=== PATIENT | female | born 1975 ===

== ENCOUNTER 2019-03-11 20:19 | Inpatient (IN) | payer OTHER ==
--- NOTE | 2019-03-11 20:31 | Event Note ---
ED Screening Note ED Screening Note: pt presents to the ED with c/o "dehydration" states she has been drinking but still feels dry generalized body aches two episodes of emesis yesterday no appetite +nausea no abd pain no fever no cough no rhinorrhea, congestion states she has a hx of anemia, with blood transfusion 2 years ago states she has DM on metformin This initial assessment/diagnostic orders/clinical plan/treatment(s) is/are subject to change based on patients health status, clinical progression and re- assessment by fellow clinical providers in the ED. Further treatment and workup at subsequent clinical providers discretion. Patient/guardian urged not to elope from the ED as their condition may be serious if not clinically assessed and managed. Initial orders include: labs, UA, EKG
--- NOTE | 2019-03-11 21:10 | Emergency Department Report ---
HPI - General Chief Complaint: Dyspnea/Respdistress Time Seen by Provider: 03/11/19 20:28 - HPI HPI: 43-year-old female presents to the emergency department with a complaint of "I think my diabetes is out of control." She complains of a 4 day history of some generalized weakness and fatigue, shortness of breath, rapid heartbeat, body aches. She has not insulin dependent diabetes for which she takes metformin 500 mg once per day compliantly. She also has a history of anemia and says that she has required a transfusion 2 years ago. The anemia has unknown etiology and she denies any significant bleeding. She has a primary care physician through a local clinic but has not seen them regarding her symptoms. No fever. No recent travel or sick contacts at home. ED Past Medical Hx - Past Medical History Previous Medical History?: Yes Hx Diabetes: Yes Additional medical history: Anemia - Surgical History Past Surgical History?: Yes Additional Surgical History: - Social History Smoking Status: Never Smoker Substance Use Type: None - Medications Home Medications: Home Medications Medication Instructions Recorded Confirmed Last Taken Type metFORMIN [Glucophage] 1 tab PO DAILY 03/11/19 03/11/19 Unknown History ED Review of Systems ROS: Stated complaint: HEADACHE/BODY PAIN Other details as noted in HPI Comment: All other systems reviewed and negative Constitutional: weakness. denies: chills, fever Eyes: denies: eye pain, vision change ENT: denies: ear pain, throat pain Respiratory: shortness of breath. denies: cough Cardiovascular: palpitations. denies: chest pain Gastrointestinal: nausea, vomiting Genitourinary: denies: dysuria, discharge Musculoskeletal: myalgia. denies: joint swelling Skin: denies: rash, lesions Neurological: denies: numbness, paresthesias Physical Exam - Physical Exam Vital Signs: Vital Signs 03/11/19 20:26 Temperature 98.6 F Pulse Rate 126 H Respiratory 18 Rate Blood Pressure 155/92 O2 Sat by Pulse 94 Oximetry Physical Exam: GENERAL: The patient is well-developed well-nourished. HENT: Normocephalic. Atraumatic. Patient has moist mucous membranes. EYES: Extraocular motions are intact. Pupils equal reactive to light bilateral ly. NECK: Supple. Trachea is midline. CHEST/LUNGS: Clear to auscultation. There is no respiratory distress noted. HEART/CARDIOVASCULAR: Regular. There is mild tachycardia. There is no murmur. ABDOMEN: Abdomen is soft, nontender. Patient has normal bowel sounds. There is no abdominal distention. SKIN: Skin is warm and dry. NEURO: The patient is awake, alert, and oriented. The patient is cooperative. The patient has no focal neurologic deficits. Normal speech. Cranial nerves II through XII grossly intact. MUSCULOSKELETAL: There is no tenderness or deformity. There is no evidence of acute injury. ED Course Vital Signs 03/11/19 20:26 Temperature 98.6 F Pulse Rate 126 H Respiratory 18 Rate Blood Pressure 155/92 O2 Sat by Pulse 94 Oximetry ED Medical Decision Making - Lab Data Result diagrams: 03/11/19 20:53 03/11/19 21:47 - EKG Data -: EKG Interpreted by Me EKG shows normal: sinus rhythm, axis, intervals, QRS complexes, ST-T waves Rate: tachycardia (115 bpm) - EKG Data When compared to previous EKG there are: previous EKG unavailable Interpretation: normal EKG (with sinus tachycardia) - Medical Decision Making Patient presents with multiple complaints that appear to be secondary to DKA, despite the fact the patient is [id number]. Blood sugar came back at about 820. The patient has venous acidosis and an elevated anion gap and 80 ketones in the urine. She has been started on an insulin drip, been given IV fluid resuscitation and will be admitted to the ICU. The patient has been accepted for admission by the hospitalist, Dr. Monroe. - Differential Diagnosis DKA, HHNK, Viral Syndrome Critical Care Time: Yes Critical care time in (mins) excluding proc time.: 31 Critical care attestation.: If time is entered above; I have spent that time in minutes in the direct care of this critically ill patient, excluding procedure time. Critical care time was spent on this patient and doing her initial evaluation, multiple re-evaluati ons, ordering and interpretation of labs and imaging, ordering of insulin drip, multiple discussions with the patient. Critical Care Time: 31 minutes ED Disposition Clinical Impression: Transaminitis Diabetic ketoacidosis Qualifiers: Diabetes mellitus type: type 2 Diabetes mellitus complication detail: without coma Qualified Code(s): E11.10 - Type 2 diabetes mellitus with ketoacidosis without coma Disposition: 09 OP ADMIT IP TO THIS HOSP Is pt being admited?: Yes Condition: Serious Time of Disposition: 23:48
[2019-03-11 21:26] LABS: Albumin 4.2 g/dL (3.9-5); Calcium 9.4 mg/dL (8.4-10.2)
[2019-03-11 21:30] LABS: Bilirubin,Urine NEG (Negative); Blood,Urine LG (Negative); Color,Urine Straw (Yellow); Protein,Urine <15 mg/dL mg/dL (Negative); RBC,Urine > 182.0 /HPF (0.0-6.0); Urobilinogen,Urine < 2.0 mg/dL (<2.0)
[2019-03-11 21:36] LABS: Basophils # (Auto) 0.1 K/mm3 (0.0-0.1); Eosinophils # (Auto) 0.1 K/mm3 (0.0-0.4); Eosinophils % (Auto) 1.1 % (0.0-4.3); Lymphocytes # (Auto) 1.9 K/mm3 (1.2-5.4); Lymphocytes % (Auto) 20.8 % (13.4-35.0); Mean Corpuscular HGB Conc 30 % (30-34); Mean Corpuscular Volume 73 fl (79-97); Monocytes # (Auto) 0.4 K/mm3 (0.0-0.8); Monocytes % (Auto) 3.9 % (0.0-7.3); Platelet Count 203 K/mm3 (140-440); Red Blood Count 5.56 M/mm3 (3.65-5.03)
[2019-03-11 21:37] LABS: Hematocrit 40.6 % (30.3-42.9); Red Cell Distribution Width 21.6 % (13.2-15.2)
[2019-03-11] MEDS ORDERED: SODIUM CHLORIDE 0.9% 1000 ML 1,000 ML IV ONE ×2 (21:41→22:06)
[2019-03-11] MEDS ORDERED: INSULIN REGULAR, HUMAN 100 UNITS in SODIUM CHLORIDE 0.9% 99 ML IV SCH (22:00)
[2019-03-11] MEDS ORDERED: ONDANSETRON 4 MG/2 ML INJ IV PRN (22:04)
[2019-03-11] MEDS ORDERED: ACETAMINOPHEN 325 MG TAB PO PRN (22:04)
--- NOTE | 2019-03-11 22:04 | History and Physical Report ---
History of Present Illness Date of examination: 03/11/19 History of present illness: 43-year-old woman with a history of diabetes on metformin comes emergency room with 3 days symptoms of generalized weakness, malaise. Also complained of dry mouth, frequent urination, nausea and decreased appetite, drinking alot. She has not checked her blood sugar in a week because she ran out of strips, states she is compliant with medication Review of systems Constitutional: no weight loss, chills, fever Ears, eyes, nose, mouth and throat: no nasal congestion, no nasal discharge, no sinus pressure, no vision change, no red eye. Neck: No neck pain or rigidity. Cardiovascular: no chest pain, palpitations Respiratory: no cough, shortness of breath Gastrointestinal: no abdominal pain hematochezia Genitourinary : no frequency , no hematuria Musculoskeletal: no joint swelling or muscle ache Integumentary: no rash, no pruritis Neurological: no parathesias, no numbness, no focal weakness Endocrine: no cold or heat intolerance Hematologic/Lymphatic: no easy bruising, no easy bleeding, no gland swelling Allergic/Immunologic: no urticaria, no angioedema. PAST MEDICAL HISTORYdiabetes PAST SURGICAL HISTORY: c/section SOCIAL HISTORY: No drugs, tobacco, alcohol FAMILY HISTORY: Hypertension Medications and Allergies Allergies Allergy/AdvReac Type Severity Reaction Status Date / Time No Known Allergies Allergy Verified 03/11/19 21:44 Home Medications Medication Instructions Recorded Confirmed Last Taken Type metFORMIN [Glucophage] 1 tab PO DAILY 03/11/19 03/11/19 Unknown History Active Meds: Active Medications Insulin Human Regular 100 (units/ Sodium Chloride) 100 mls @ 6 mls/hr IV TITR SHERLEY; Protocol Sodium Chloride (Nacl 0.9% 1000 Ml) 1,000 mls @ 999 mls/hr IV BOLUS ONE Stop: 03/11/19 22:41 Last Admin: 03/11/19 22:02 Dose: 999 mls/hr Documented by: Exam - Physical Exam Narrative exam: Gen. appearance: Patient lying in bed, no apparent distress HEENT: Normocephalic, atraumatic, pupils equally round and reactive to light, extraocular movement intact, and no sclericterus,. No JVD or thyromegaly or nodule,neck supple, no carotid bruit ,mucous membranes dry, no exudate or erythema Heart: S1, S2, regular rate and rhythm Lungs: Clear bilaterally, breathing comfortable Abdomen: Positive bowel sounds, non-tender, nondistended, no organomegaly Extremity:no edema cyanosis, clubbing Skin: no rash, dry, warm Neuro: Oriented 3, cranial nerves II-12 intact, speech is fluent, motor and sensory intact - Constitutional Vitals: Temp Pulse Resp BP Pulse Ox 98.7 F 127 H 20 157/100 97 03/11/19 21:04 03/11/19 21:04 03/11/19 21:04 03/11/19 21:04 03/11/19 21:04 Results - Labs CBC & Chem 7: 03/11/19 20:53 03/11/19 21:47 Labs: Abnormal lab results 03/11/19 03/11/19 03/11/19 Range/Units 20:44 20:53 20:53 RBC 5.56 H (3.65-5.03) M/mm3 MCV 73 L (79-97) fl MCH 22 L (28-32) pg RDW 21.6 H (13.2-15.2) % Seg Neutrophils % 73.2 H (40.0-70.0) % VBG pH (7.320-7.420) Sodium 133 L (137-145) mmol/L Chloride 96.3 L (98-107) mmol/L Carbon Dioxide 15 L (22-30) mmol/L Glucose 826 H* (65-100) mg/dL POC Glucose > 500 H (70-105) AST 81 H (5-40) units/L ALT 129 H (7-56) units/L Ur Specific [place] (1.003-1.030) Urine WBC (Auto) (0.0-6.0) /HPF 03/11/19 03/11/19 Range/Units 20:53 21:14 RBC (3.65-5.03) M/mm3 MCV (79-97) fl MCH (28-32) pg RDW (13.2-15.2) % Seg Neutrophils % (40.0-70.0) % VBG pH 7.272 L (7.320-7.420) Sodium (137-145) mmol/L Chloride (98-107) mmol/L Carbon Dioxide (22-30) mmol/L Glucose (65-100) mg/dL POC Glucose (70-105) AST (5-40) units/L ALT (7-56) units/L Ur Specific [place] 1.031 H (1.003-1.030) Urine WBC (Auto) 8.0 H (0.0-6.0) /HPF Assessment and Plan Assessment DKA Metabolic Acidosis pseudohyponatremia Plan Admit to medicine Start DKA protocol with IV fluid, insulin drip Monitor serial chemistry, check HAIc DVT prophalaxis
[2019-03-11 22:18] LABS: BUN/Creatinine Ratio 11; Blood Urea Nitrogen 11 mg/dL (7-17); Calcium 9.3 mg/dL (8.4-10.2); Hemolysis Index 10
[2019-03-11] MEDS ORDERED: D5W/0.45% NACL/KCL 20 MEQ 20 MEQ/1,000 ML BAG IV SCH (23:00)
[2019-03-11 23:55] LABS: BUN/Creatinine Ratio 11; Blood Urea Nitrogen 10 mg/dL (7-17); Calcium 8.7 mg/dL (8.4-10.2); Hemolysis Index 1
[2019-03-12] MEDS: SODIUM CHLORIDE 0.9% 1000 ML 1,000 ML IV SCH ×2 (00:09→16:28)
[2019-03-12 02:51] LABS: BUN/Creatinine Ratio 13; Blood Urea Nitrogen 9 mg/dL (7-17); Calcium 8.6 mg/dL (8.4-10.2); Hemolysis Index 2
[2019-03-12 05:33] LABS: BUN/Creatinine Ratio 17; Blood Urea Nitrogen 10 mg/dL (7-17); Calcium 8.7 mg/dL (8.4-10.2); Hemolysis Index 48
[2019-03-12 07:04] LABS: BUN/Creatinine Ratio 17; Blood Urea Nitrogen 10 mg/dL (7-17); Calcium 8.8 mg/dL (8.4-10.2); Hemolysis Index 2
[2019-03-12] MEDS: INSULIN REGULAR, HUMAN 100 UNITS/1 ML SUB-Q SCH ×3 (10:46→22:33)
--- NOTE | 2019-03-12 14:26 | Progress Note ---
Assessment and Plan DKA, now resolved Metabolic Acidosis pseudohyponatremia obesity - placed on DKA protocol with IV fluid, insulin drip - Monitored serial chemistry, follow [facility] - will stop insulin drip today, transitioned to Subqu insulin - consistent carb diet, diabetic education - DVT prophalaxis - transfer to [facility] Subjective Date of service: 03/12/19 Interval history: patient seen and examined BG improved with insulin drip denies any abdominal pain N/V Objective - Constitutional Vitals: Vital Signs - 12hr 03/12/19 03/12/19 03/12/19 02:31 02:41 02:51 Temperature Pulse Rate 90 90 87 Pulse Rate [ From Monitor] Respiratory 18 15 17 Rate Blood Pressure 140/76 146/77 146/77 O2 Sat by Pulse 98 97 98 Oximetry 03/12/19 03/12/19 03/12/19 03:00 03:11 03:21 Temperature Pulse Rate 84 87 87 Pulse Rate [ From Monitor] Respiratory 17 18 18 Rate Blood Pressure 153/84 153/84 153/84 O2 Sat by Pulse 98 97 98 Oximetry 03/12/19 03/12/19 03/12/19 03:31 03:41 03:51 Temperature Pulse Rate 82 84 82 Pulse Rate [ From Monitor] Respiratory 16 17 16 Rate Blood Pressure 153/84 153/84 153/84 O2 Sat by Pulse 98 97 98 Oximetry 03/12/19 03/12/19 03/12/19 03:55 04:00 04:11 Temperature 97.3 F L Pulse Rate 84 85 85 Pulse Rate [ From Monitor] Respiratory 18 16 Rate Blood Pressure 142/87 142/87 O2 Sat by Pulse 97 98 Oximetry 03/12/19 03/12/19 03/12/19 04:21 04:31 04:41 Temperature Pulse Rate 87 82 84 Pulse Rate [ From Monitor] Respiratory 16 14 17 Rate Blood Pressure 142/87 142/87 142/87 O2 Sat by Pulse 98 99 98 Oximetry 03/12/19 03/12/19 03/12/19 04:51 05:00 05:11 Temperature Pulse Rate 85 80 83 Pulse Rate [ From Monitor] Respiratory 16 16 20 Rate Blood Pressure 142/87 133/83 133/83 O2 Sat by Pulse 98 98 97 Oximetry 03/12/19 03/12/19 03/12/19 05:21 05:31 05:41 Temperature Pulse Rate 81 80 82 Pulse Rate [ From Monitor] Respiratory 16 15 15 Rate Blood Pressure 133/83 133/83 133/83 O2 Sat by Pulse 97 97 98 Oximetry 03/12/19 03/12/19 03/12/19 05:51 06:00 06:11 Temperature Pulse Rate 88 84 83 Pulse Rate [ From Monitor] Respiratory 16 14 16 Rate Blood Pressure 133/83 139/88 139/88 O2 Sat by Pulse 99 100 99 Oximetry 03/12/19 03/12/19 03/12/19 06:21 06:31 06:41 Temperature Pulse Rate 82 84 81 Pulse Rate [ From Monitor] Respiratory 16 17 15 Rate Blood Pressure 139/88 139/88 139/88 O2 Sat by Pulse 99 98 98 Oximetry 03/12/19 03/12/19 03/12/19 06:51 07:00 07:11 Temperature Pulse Rate 80 80 82 Pulse Rate [ From Monitor] Respiratory 15 15 15 Rate Blood Pressure 139/88 132/81 139/88 O2 Sat by Pulse 98 98 98 Oximetry 03/12/19 03/12/19 03/12/19 07:21 07:31 07:41 Temperature Pulse Rate 85 87 82 Pulse Rate [ From Monitor] Respiratory 15 16 15 Rate Blood Pressure 139/88 139/88 139/88 O2 Sat by Pulse 98 99 98 Oximetry 03/12/19 03/12/19 03/12/19 07:51 08:00 08:11 Temperature 98.2 F Pulse Rate 91 H 81 80 Pulse Rate [ 81 From Monitor] Respiratory 18 16 15 Rate Blood Pressure 139/88 133/89 133/89 O2 Sat by Pulse 99 98 Oximetry 03/12/19 03/12/19 03/12/19 08:21 08:31 08:41 Temperature Pulse Rate 80 85 83 Pulse Rate [ From Monitor] Respiratory 15 16 17 Rate Blood Pressure 133/89 133/89 133/89 O2 Sat by Pulse 98 97 97 Oximetry 03/12/19 03/12/19 03/12/19 08:51 09:00 09:11 Temperature Pulse Rate 85 83 86 Pulse Rate [ From Monitor] Respiratory 16 16 19 Rate Blood Pressure 133/89 128/85 128/85 O2 Sat by Pulse 98 98 99 Oximetry 03/12/19 03/12/19 03/12/19 09:21 09:31 09:41 Temperature Pulse Rate 104 H 106 H 85 Pulse Rate [ From Monitor] Respiratory 21 14 18 Rate Blood Pressure 128/85 128/85 128/85 O2 Sat by Pulse 99 99 98 Oximetry 03/12/19 03/12/19 03/12/19 09:51 09:58 10:00 Temperature Pulse Rate 85 85 Pulse Rate [ From Monitor] Respiratory 18 15 Rate Blood Pressure 128/85 132/93 O2 Sat by Pulse 98 98 97 Oximetry 03/12/19 03/12/19 03/12/19 10:11 10:21 10:31 Temperature Pulse Rate 83 82 83 Pulse Rate [ From Monitor] Respiratory 17 17 16 Rate Blood Pressure 132/93 132/93 132/93 O2 Sat by Pulse 98 99 98 Oximetry General appearance: Present: no acute distress, obese - EENT Eyes: PERRL, EOM intact ENT: hearing intact, clear oral mucosa Ears: bilateral: normal - Neck Neck: supple, normal ROM - Respiratory Respiratory effort: normal Respiratory: bilateral: CTA - Cardiovascular Rhythm: regular Heart Sounds: Present: S1 & S2. Absent: gallop, rub Extremities: pulses intact, No edema, normal color, Full ROM - Gastrointestinal General gastrointestinal: Present: soft, non-tender, non-distended, normal bowel sounds - Integumentary Integumentary: clear, warm, dry - Musculoskeletal Musculoskeletal: 1, strength equal bilaterally - Neurologic Neurologic: moves all extremities - Psychiatric Psychiatric: memory intact, appropriate mood/affect, intact judgment & insight - Labs CBC & Chem 7: 03/11/19 20:53 03/12/19 21:18 Labs: Abnormal lab results 03/11/19 03/11/19 03/11/19 Range/Units 20:44 20:53 20:53 RBC 5.56 H (3.65-5.03) M/mm3 MCV 73 L (79-97) fl MCH 22 L (28-32) pg RDW 21.6 H (13.2-15.2) % Seg Neutrophils % 73.2 H (40.0-70.0) % VBG pH (7.320-7.420) Sodium 133 L (137-145) mmol/L Potassium (3.6-5.0) mmol/L Chloride 96.3 L (98-107) mmol/L Carbon Dioxide 15 L (22-30) mmol/L Creatinine (0.7-1.2) mg/dL Glucose 826 H* (65-100) mg/dL POC Glucose > 500 H (70-105) Hemoglobin A1c (4-6) % AST 81 H (5-40) units/L ALT 129 H (7-56) units/L Ur Specific [place] (1.003-1.030) Urine WBC (Auto) (0.0-6.0) /HPF 03/11/19 03/11/19 03/11/19 Range/Units 20:53 21:14 21:47 RBC (3.65-5.03) M/mm3 MCV (79-97) fl MCH (28-32) pg RDW (13.2-15.2) % Seg Neutrophils % (40.0-70.0) % VBG pH 7.272 L (7.320-7.420) Sodium 134 L (137-145) mmol/L Potassium (3.6-5.0) mmol/L Chloride (98-107) mmol/L Carbon Dioxide 13 L (22-30) mmol/L Creatinine (0.7-1.2) mg/dL Glucose 765 H* (65-100) mg/dL POC Glucose (70-105) Hemoglobin A1c (4-6) % AST (5-40) units/L ALT (7-56) units/L Ur Specific [place] 1.031 H (1.003-1.030) Urine WBC (Auto) 8.0 H (0.0-6.0) /HPF 03/11/19 03/11/19 03/11/19 Range/Units 23:25 23:25 23:27 RBC (3.65-5.03) M/mm3 MCV (79-97) fl MCH (28-32) pg RDW (13.2-15.2) % Seg Neutrophils % (40.0-70.0) % VBG pH (7.320-7.420) Sodium (137-145) mmol/L Potassium (3.6-5.0) mmol/L Chloride (98-107) mmol/L Carbon Dioxide 15 L (22-30) mmol/L Creatinine (0.7-1.2) mg/dL Glucose 507 H* (65-100) mg/dL POC Glucose 451 H (70-105) Hemoglobin A1c 11.7 H (4-6) % AST (5-40) units/L ALT (7-56) units/L Ur Specific [place] (1.003-1.030) Urine WBC (Auto) (0.0-6.0) /HPF 03/12/19 03/12/19 03/12/19 Range/Units 00:34 01:55 02:03 RBC (3.65-5.03) M/mm3 MCV (79-97) fl MCH (28-32) pg RDW (13.2-15.2) % Seg Neutrophils % (40.0-70.0) % VBG pH (7.320-7.420) Sodium (137-145) mmol/L Potassium 3.3 L (3.6-5.0) mmol/L Chloride 113.9 H (98-107) mmol/L Carbon Dioxide 16 L (22-30) mmol/L Creatinine (0.7-1.2) mg/dL Glucose 304 H (65-100) mg/dL POC Glucose 363 H 299 H (70-105) Hemoglobin A1c (4-6) % AST (5-40) units/L ALT (7-56) units/L Ur Specific [place] (1.003-1.030) Urine WBC (Auto) (0.0-6.0) /HPF 03/12/19 03/12/19 03/12/19 Range/Units 02:44 04:07 04:30 RBC (3.65-5.03) M/mm3 MCV (79-97) fl MCH (28-32) pg RDW (13.2-15.2) % Seg Neutrophils % (40.0-70.0) % VBG pH (7.320-7.420) Sodium (137-145) mmol/L Potassium (3.6-5.0) mmol/L Chloride 114.7 H (98-107) mmol/L Carbon Dioxide 15 L (22-30) mmol/L Creatinine 0.6 L (0.7-1.2) mg/dL Glucose 234 H (65-100) mg/dL POC Glucose 260 H 232 H (70-105) Hemoglobin A1c (4-6) % AST (5-40) units/L ALT (7-56) units/L Ur Specific [place] (1.003-1.030) Urine WBC (Auto) (0.0-6.0) /HPF 03/12/19 03/12/19 03/12/19 Range/Units 04:54 06:02 06:04 RBC (3.65-5.03) M/mm3 MCV (79-97) fl MCH (28-32) pg RDW (13.2-15.2) % Seg Neutrophils % (40.0-70.0) % VBG pH (7.320-7.420) Sodium (137-145) mmol/L Potassium (3.6-5.0) mmol/L Chloride 113.6 H (98-107) mmol/L Carbon Dioxide 15 L (22-30) mmol/L Creatinine 0.6 L (0.7-1.2) mg/dL Glucose 249 H (65-100) mg/dL POC Glucose 238 H 258 H (70-105) Hemoglobin A1c (4-6) % AST (5-40) units/L ALT (7-56) units/L Ur Specific [place] (1.003-1.030) Urine WBC (Auto) (0.0-6.0) /HPF 03/12/19 03/12/19 Range/Units 07:36 08:58 RBC (3.65-5.03) M/mm3 MCV (79-97) fl MCH (28-32) pg RDW (13.2-15.2) % Seg Neutrophils % (40.0-70.0) % VBG pH (7.320-7.420) Sodium (137-145) mmol/L Potassium (3.6-5.0) mmol/L Chloride (98-107) mmol/L Carbon Dioxide (22-30) mmol/L Creatinine (0.7-1.2) mg/dL Glucose (65-100) mg/dL POC Glucose 232 H 190 H (70-105) Hemoglobin A1c (4-6) % AST (5-40) units/L ALT (7-56) units/L Ur Specific [place] (1.003-1.030) Urine WBC (Auto) (0.0-6.0) /HPF
[2019-03-12 14:31] LABS: BUN/Creatinine Ratio 14; Blood Urea Nitrogen 10 mg/dL (7-17); Calcium 8.2 mg/dL (8.4-10.2); Hemolysis Index 10
[2019-03-12 21:52] LABS: BUN/Creatinine Ratio 13; Blood Urea Nitrogen 9 mg/dL (7-17); Hemolysis Index 8
[2019-03-12] MEDS: oxyCODONE /ACETAMINOPHEN 5-325MG TAB PO PRN (22:32)
[2019-03-13] MEDS: SODIUM CHLORIDE 0.9% 1000 ML 1,000 ML IV SCH (03:17)
[2019-03-13] MEDS: INSULIN REGULAR, HUMAN 100 UNITS/1 ML SUB-Q SCH ×4 (08:49→21:57)
[2019-03-13] MEDS: oxyCODONE /ACETAMINOPHEN 5-325MG TAB PO PRN (10:13)
[2019-03-13] MEDS: INSULIN NPH, HUMAN 100 UNIT/1 ML SUB-Q SCH ×2 (12:19→17:48)
--- NOTE | 2019-03-13 14:19 | Progress Note ---
Assessment and Plan DKA, now resolved - - s/p DKA protocol with IV fluid, insulin drip - Monitored serial chemistry, A1c 11.7 - transitioned to Subqu insulin, cont to adjust dose for better glycemic control - consistent carb diet, diabetic education hyponatremia - due to hyperglycemia, resolved Hypokalemia, replete, check Mg DM type 2, uncontrolled - will need insulin along with metformin, provide diabetic education before d/c Tension headache, tylenol as needed - CT head if any neuro symptom develops obesity, wt reduction diet and exercise as outpt as appropriate - DVT prophalaxis, lovenox Brief History: 43-year-old woman with a history of diabetes on metformin comes emergency room with 3 days symptoms of generalized weakness, malaise. Also complained of dry mouth, frequent urination, nausea and decreased appetite, drinking alot. She has not checked her blood sugar in a week because she ran out of strips, states she is compliant with medication. Her Bg in the Er was 826, with AG of 26, placed on insulin drip, admitted to ICU. Subjective Date of service: 03/13/19 Interval history: patient seen and examined denies any abdominal pain N/V c/o headache this am BG still >300 in the am Objective - Exam Narrative Exam: General appearance: Present: no acute distress, obese - EENT Eyes: PERRL, EOM intact ENT: hearing intact, clear oral mucosa Ears: bilateral: normal - Neck Neck: supple, normal ROM - Respiratory Respiratory effort: normal Respiratory: bilateral: CTA - Cardiovascular Rhythm: regular Heart Sounds: Present: S1 & S2. Absent: gallop, rub Extremities: pulses intact, No edema, normal color, Full ROM - Gastrointestinal General gastrointestinal: Present: soft, non-tender, non-distended, normal bowel sounds - Integumentary Integumentary: clear, warm, dry - Musculoskeletal Musculoskeletal: 1, strength equal bilaterally - Neurologic Neurologic: moves all extremities - Psychiatric Psychiatric: memory intact, appropriate mood/affect, intact judgment & insight - Constitutional Vitals: Vital Signs - 12hr 03/13/19 03/13/19 05:46 11:42 Temperature 98.6 F 98.0 F Pulse Rate 80 98 H Respiratory 18 16 Rate Blood Pressure 126/72 117/67 O2 Sat by Pulse 98 97 Oximetry - Labs CBC & Chem 7: 03/11/19 20:53 03/14/19 05:39 Labs: Abnormal lab results 03/12/19 03/12/19 03/12/19 Range/Units 10:30 13:48 16:14 Potassium (3.6-5.0) mmol/L Chloride 108.1 H (98-107) mmol/L Carbon Dioxide 13 L (22-30) mmol/L Glucose 325 H (65-100) mg/dL POC Glucose 162 H 324 H (70-105) Calcium 8.2 L (8.4-10.2) mg/dL 03/12/19 03/12/19 03/13/19 Range/Units 21:18 21:59 08:05 Potassium 3.4 L (3.6-5.0) mmol/L Chloride (98-107) mmol/L Carbon Dioxide 17 L (22-30) mmol/L Glucose 370 H (65-100) mg/dL POC Glucose 387 H 309 H (70-105) Calcium 8.0 L (8.4-10.2) mg/dL 03/13/19 Range/Units 11:48 Potassium (3.6-5.0) mmol/L Chloride (98-107) mmol/L Carbon Dioxide (22-30) mmol/L Glucose (65-100) mg/dL POC Glucose 399 H (70-105) Calcium (8.4-10.2) mg/dL
[2019-03-13 16:14] LABS: BUN/Creatinine Ratio 14; Blood Urea Nitrogen 10 mg/dL (7-17); Calcium 8.8 mg/dL (8.4-10.2); Hemolysis Index 10
[2019-03-13] MEDS: metFORMIN 500 MG TAB PO SCH (17:50)
[2019-03-14 06:10] LABS: BUN/Creatinine Ratio 13; Blood Urea Nitrogen 8 mg/dL (7-17)
[2019-03-14 06:11] LABS: Hemolysis Index 1
[2019-03-14 06:34] LABS: Calcium 8.4 mg/dL (8.4-10.2)
[2019-03-14] MEDS: metFORMIN 500 MG TAB PO SCH ×2 (08:57→17:48)
[2019-03-14] MEDS: POTASSIUM CHLORIDE ER 20 MEQ TAB PO SCH ×2 (08:57→15:45)
[2019-03-14] MEDS: INSULIN REGULAR, HUMAN 100 UNITS/1 ML SUB-Q SCH ×3 (09:00→17:48)
[2019-03-14] MEDS: INSULIN NPH, HUMAN 100 UNIT/1 ML SUB-Q SCH ×2 (09:05→17:45)
[2019-03-14] MEDS ORDERED: POTASSIUM CHLORIDE ER 20 MEQ TAB PO SCH (10:00)
--- NOTE | 2019-03-14 12:20 | Discharge Summary ---
Providers - Providers Date of Admission: 03/11/19 22:04 Date of discharge: 03/14/19 Attending physician: AUDREY CAMACHO Primary care physician: BREEZY PARKER MD Hospitalization Condition: Good Hospital course: 43-year-old woman with a history of diabetes on metformin comes emergency room with 3 days symptoms of generalized weakness, malaise. Also complained of dry mouth, frequent urination, nausea and decreased appetite, drinking alot. She has not checked her blood sugar in a week because she ran out of strips, states she is compliant with medication. Her blood glucose in the Er was 826, with AG of 26, placed on insulin drip, admitted to ICU. DKA, now resolved - - s/p DKA protocol with IV fluid, insulin drip - Monitored serial chemistry, A1c 11.7 - transitioned to Subqu insulin, cont to adjust dose for better glycemic control Glucose level improved. Insulin was recommended but she declined so was discharged home on Metformin. hyponatremia - due to hyperglycemia, resolved Hypokalemia, repleted, DM type 2, uncontrolled Tension headache, tylenol as needed obesity, wt reduction diet and exercise as outpt as appropriate Total time spent on discharge, 34 mins Disposition: DC- TO HOME OR SELFCARE - Discharge Diagnoses (1) Diabetic ketoacidosis Status: Acute Qualifiers: Diabetes mellitus type: type 2 Diabetes mellitus complication detail: without coma Qualified Code(s): E11.10 - Type 2 diabetes mellitus with ketoacidosis without coma (2) Transaminitis Status: Acute (3) Hypokalemia Status: Acute (4) Hypophosphatemia Status: Acute (5) Hyponatremia Status: Acute Core Measure Documentation - Palliative Care Palliative Care/ Comfort Measures: Not Applicable - Core Measures Any of the following diagnoses?: none Exam - Constitutional Vitals: Temp Pulse Resp BP Pulse Ox 98.0 F 83 18 132/75 97 03/14/19 06:04 03/14/19 06:04 03/14/19 06:04 03/14/19 06:04 03/14/19 06:04 Plan Activity: no restrictions Diet: low fat, low cholesterol, low salt, diabetic Plan of Treatment: 1.Follow up with PCP in 1 week Follow up with: PRIMARY CARE, [Primary Care Provider] - 7 Days Prescriptions: RX: Magnesium Oxide [Mag-Ox] 400 mg PO BID #20 tablet Metformin HCl [metFORMIN] 1,000 mg PO BID #60 tablet
[2019-03-14] MEDS ORDERED: MAGNESIUM OXIDE 400 MG TAB PO SCH (13:00)
[2019-03-14 18:04] VITALS: BP 132/82
[2019-03-14] MEDS ORDERED: ENOXAPARIN 40 MG/0.4 ML INJ SUB-Q SCH (22:00)
== END 2019-03-14 19:00 | disposition home or self-care (01) | DRG 638 ==
LOC: ED 20:19 → CC1 22:04 → 3A 03-12 16:01
PROVIDERS: ADMIT Internal Medicine; ATTEND Internal Medicine
DX: E11.10 Type 2 diabetes mellitus with ketoacidosis without coma (principal); E87.1 Hypo-osmolality and hyponatremia; E87.6 Hypokalemia; R74.0 Nonspecific elevation of levels of transaminase and lactic acid dehydrogenase [LDH]; G44.209 Tension-type headache, unspecified, not intractable; E66.9 Obesity, unspecified; Z68.36 Body mass index [BMI] 36.0-36.9, adult; Z82.49 Family history of ischemic heart disease and other diseases of the circulatory system; Z79.899 Other long term (current) drug therapy
CPT/HCPCS: 36415; 80048; 80053; 81001; 82550; 82805; 82962; 83036; 83735; 84100; 84443; 85025; 86850; 86900; 86901; 93005; 93010; 96360; 96361; G0378; J1815; J7030

== ENCOUNTER 2020-10-03 08:41 | Emergency (ER) | payer OTHER ==
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
[2020-10-03 09:47] LABS: Mean Corpuscular HGB Conc 29 % (30-34); Platelet Count 305 K/mm3 (140-440)
[2020-10-03 10:09] LABS: Hematocrit 28.3 % (30.3-42.9); Hemoglobin 8.1 gm/dl (10.1-14.3); Mean Corpuscular Volume 59 fl (79-97)
[2020-10-03 10:11] LABS: Blood Urea Nitrogen 15 mg/dL (7-17); Calcium 10.3 mg/dL (8.4-10.2); Hemolysis Index 0
[2020-10-03 10:13] LABS: BUN/Creatinine Ratio 21
[2020-10-03] MEDS ORDERED: SODIUM CHLORIDE 0.9% 1000 ML 1,000 ML IV ONE (10:25)
[2020-10-03 14:37] VITALS: BP 124/73
[2020-10-03 15:26] LABS: Anisocytosis 2+; Band Neutrophils # (Manual) 0.4 K/mm3; Hypochromasia 1+; Platelet Estimate Consistent w Auto; Total Cells Counted 100
== END 2020-10-03 12:00 | disposition home or self-care (01) ==
LOC: ED 08:41
DX: E86.0 Dehydration (principal); D64.9 Anemia, unspecified; E11.9 Type 2 diabetes mellitus without complications; Z98.890 Other specified postprocedural states; Z79.84 Long term (current) use of oral hypoglycemic drugs; Z79.899 Other long term (current) drug therapy
CPT/HCPCS: 36415; 80048; 84703; 85007; 85025; 86850; 86900; 86901; 96360; 99283; J7030